=== PATIENT | male | born 1955 | race Caucasian/White ===

== ENCOUNTER 2021-06-25 10:48 | Inpatient (IN) | payer OTHER ==
[~2021-06-25] VITALS: Ht 182.9 cm; Wt 108.4 kg
[2021-06-25 11:27] LABS: HEMOGLOBIN 15.9 gm/dl (14.0-17.5); RED BLOOD COUNT 4.92 M/UL (4.20-5.50); WHITE BLOOD COUNT 9.1 K/UL (4.5-11.0)
[2021-06-25 12:05] LABS: BUN/CREATININE RATIO 16 (0-10)
[2021-06-25] MEDS ORDERED: GLUCOTROL 10 MG10 MG PO (14:55)
[2021-06-25] MEDS ORDERED: ZOCOR 40 MG TAB40 MG PO (14:56)
[2021-06-25] MEDS ORDERED: LOPID600 MG PO (14:57)
[2021-06-25] MEDS ORDERED: LOPRESSOR 50 MG50 MG PO (14:57)
[2021-06-25] MEDS ORDERED: DOXYCYCLINE HY100 M2 PO (14:58)
[2021-06-25] MEDS ORDERED: PROAIR HFA8.5 GM INH (14:58)
[2021-06-25] MEDS ORDERED: ZINC SULFATE50 M1 PO (15:00)
[2021-06-25] MEDS ORDERED: VITAMIN D350 MC3 PO (15:01)
[2021-06-25] MEDS ORDERED: VITAMIN C500 M4 PO (15:02)
[2021-06-25] MEDS ORDERED: PREDNISONE 10 M10 MG PO (15:04)
[2021-06-25] MEDS ORDERED: ECOTRIN81 MG PO (15:05)
[2021-06-26 05:53] LABS: HEMOGLOBIN 14.4 gm/dl (14.0-17.5); RED BLOOD COUNT 4.46 M/UL (4.20-5.50); WHITE BLOOD COUNT 7.6 K/UL (4.5-11.0)
[2021-06-26 06:15] LABS: BUN/CREATININE RATIO 24 (0-10)
[2021-06-27 07:53] LABS: BUN/CREATININE RATIO 33 (0-10)
[2021-06-28 07:48] LABS: BUN/CREATININE RATIO 39 (0-10)
[2021-06-29 06:58] LABS: HEMOGLOBIN 14.6 gm/dl (14.0-17.5); RED BLOOD COUNT 4.56 M/UL (4.20-5.50); WHITE BLOOD COUNT 9.6 K/UL (4.5-11.0)
[2021-06-29 07:26] LABS: BUN/CREATININE RATIO 46 (0-10)
[2021-06-30 04:05] LABS: HEMOGLOBIN 14.5 gm/dl (14.0-17.5); RED BLOOD COUNT 4.7 M/UL (4.20-5.50); WHITE BLOOD COUNT 10.2 K/UL (4.5-11.0)
[2021-06-30 04:25] LABS: BUN/CREATININE RATIO 38 (0-10)
[2021-07-01 05:16] LABS: HEMOGLOBIN 14.7 gm/dl (14.0-17.5); RED BLOOD COUNT 4.63 M/UL (4.20-5.50); WHITE BLOOD COUNT 9.3 K/UL (4.5-11.0)
[2021-07-01 05:49] LABS: BUN/CREATININE RATIO 37 (0-10)
[2021-07-02 06:55] LABS: HEMOGLOBIN 15.7 gm/dl (14.0-17.5); RED BLOOD COUNT 4.92 M/UL (4.20-5.50); WHITE BLOOD COUNT 10.8 K/UL (4.5-11.0)
[2021-07-02 07:09] LABS: BUN/CREATININE RATIO 36 (0-10)
[2021-07-03 07:18] LABS: HEMOGLOBIN 14.2 gm/dl (14.0-17.5); RED BLOOD COUNT 4.61 M/UL (4.20-5.50)
[2021-07-03 07:34] LABS: WHITE BLOOD COUNT 7.6 K/UL (4.5-11.0)
[2021-07-03 07:45] LABS: BUN/CREATININE RATIO 28 (0-10)
[2021-07-04 07:17] LABS: HEMOGLOBIN 14.2 gm/dl (14.0-17.5); RED BLOOD COUNT 4.58 M/UL (4.20-5.50); WHITE BLOOD COUNT 7.5 K/UL (4.5-11.0)
[2021-07-04 07:31] LABS: BUN/CREATININE RATIO 21 (0-10)
[2021-07-05 07:31] LABS: HEMOGLOBIN 14.1 gm/dl (14.0-17.5); RED BLOOD COUNT 4.58 M/UL (4.20-5.50); WHITE BLOOD COUNT 7.9 K/UL (4.5-11.0)
[2021-07-05 07:41] LABS: BUN/CREATININE RATIO 18 (0-10)
[2021-07-06 06:32] LABS: HEMOGLOBIN 14.9 gm/dl (14.0-17.5); RED BLOOD COUNT 4.63 M/UL (4.20-5.50); WHITE BLOOD COUNT 8.2 K/UL (4.5-11.0)
[2021-07-06 06:40] LABS: BUN/CREATININE RATIO 16 (0-10)
--- NOTE | 2021-07-06 11:44 | NUR ---
PATIENT NOTED TO DESAT TO 87% ON ROOM AIR WHILE AMBULATING.
[2021-07-06] MEDS ORDERED: BENZONATATE200 MG PO (12:05)
[2021-07-06] MEDS ORDERED: IPRAT-ALBUT 0.5-3 ML NEB (12:05)
[2021-07-06] MEDS ORDERED: ELIQUIS 2.5 MG2.5 MG PO (12:05)
[2021-07-06] MEDS ORDERED: MUCINEX600 MG PO (12:05)
[2021-07-06] MEDS ORDERED: BUDESONIDE0.5 MG/2 M NEB (12:05)
[2021-07-06] MEDS ORDERED: LOPRESSOR 25 MG25 MG PO (12:05)
== END 2021-07-06 15:40 | disposition home or self-care (01) | DRG 177 ==
LOC: ER1 10:48 → CDU 12:46 → MED SURG 4 12:46
PROVIDERS: Internal Medicine; Physician Assistant; Physician Assistant Medical; ADMIT Internal Medicine
PROC: 8E0ZXY6 Isolation (ICD-10-PCS; principal; 2021-06-25)
PROC: XW033E5 Introduction of Remdesivir Anti-infective into Peripheral Vein, Percutaneous Approach, New Technology Group 5 (ICD-10-PCS; 2021-06-25)
PROC: 3E0333Z Introduction of Anti-inflammatory into Peripheral Vein, Percutaneous Approach (ICD-10-PCS; 2021-06-25)
DX: U07.1 COVID-19 (principal); J96.01 Acute respiratory failure with hypoxia; J12.82 Pneumonia due to coronavirus disease 2019; E87.2 Acidosis; E87.1 Hypo-osmolality and hyponatremia; E11.9 Type 2 diabetes mellitus without complications; E55.9 Vitamin D deficiency, unspecified; E78.5 Hyperlipidemia, unspecified; I10 Essential (primary) hypertension; Z82.0 Family history of epilepsy and other diseases of the nervous system; Z79.4 Long term (current) use of insulin; Z79.01 Long term (current) use of anticoagulants; Z79.82 Long term (current) use of aspirin
CPT/HCPCS: 36415; 36600; 71045; 80048; 80053; 82550; 82553; 82803; 82962; 83605; 83615; 83735; 83874; 83880; 84484; 85025; 85027; 85379; 86140; 87040; 93005; 94640; 94664; 94760; 96374; 99285; J0696; J1100; J1650; J2185; J7030; Q9967; U0002

== ENCOUNTER 2021-07-08 23:26 | Emergency (ER) | payer OTHER ==
[~2021-07-08 23:26] MED LIST: BENZONATATE200 MG PO; BUDESONIDE0.5 MG/2 M NEB; DOXYCYCLINE HY100 M2 PO; ECOTRIN81 MG PO; ELIQUIS 2.5 MG2.5 MG PO; GLUCOTROL 10 MG10 MG PO; IPRAT-ALBUT 0.5-3 ML NEB; LOPID600 MG PO; LOPRESSOR 25 MG25 MG PO; LOPRESSOR 50 MG50 MG PO; MUCINEX600 MG PO; PREDNISONE 10 M10 MG PO; PROAIR HFA8.5 GM INH; VITAMIN C500 M4 PO; VITAMIN D350 MC3 PO; ZINC SULFATE50 M1 PO; ZOCOR 40 MG TAB40 MG PO
== END 2021-07-09 | disposition home or self-care (01) ==
LOC: ER1 23:26
DX: R04.0 Epistaxis (principal); I10 Essential (primary) hypertension; Z79.1 Long term (current) use of non-steroidal anti-inflammatories (NSAID)
CPT/HCPCS: 99283